=== PATIENT | male | born 1965 | race Caucasian/White ===

== ENCOUNTER 2018-02-28 00:18 | Day surgery (SDC) | payer OTHER ==
[~2018-02-28] VITALS: Ht 177.8 cm; Wt 78.9 kg
[2018-02-28] VITALS (9 sets, daily range): BP systolic 116–128; BP diastolic 49–77
[~2018-02-28 00:18] MED LIST: ACET250T19 PO; ANTI1CAP5; BIMA2.5D5 OP; BRIM5DRO7 OP; MULT-1287 PO; VIT1CAPS34 PO; ceFAZolin(*) 2GM/D5W 50ML 50 ML IVPB ONE
[2018-02-28] MEDS ORDERED: NORMOSOL R SOLN(*) 1000 ML BAG 1,000 ML IV PRN (06:45)
[2018-02-28] MEDS ORDERED: LIDOCAINE/SOD BICARB 8.4% SYR ID ONE (06:45)
[2018-02-28] MEDS ORDERED: ACETAMINOPHEN 500 MG TAB PO ONE (06:45)
[2018-02-28] MEDS ORDERED: ceFAZolin(*) 2GM/D5W 50ML 50 ML IVPB ONE (06:45)
[2018-02-28] MEDS ORDERED: PREGABALIN 150 MG CAPSULE PO ONE (06:45)
[2018-02-28] MEDS ORDERED: FAMOTIDINE 20 MG TAB PO ONE (06:45)
[2018-02-28] MEDS ORDERED: MIDAZOLAM 2 MG/2 ML VIAL IVP PRN (06:45)
[2018-02-28] MEDS ORDERED: ROPIVACAINE 0.5% 20 ML VIAL ONE (09:14)
[2018-02-28] MEDS ORDERED: PROPOFOL EMUL(*) 10MG/ML 20 ML 20 ML ONE (09:46)
[2018-02-28] MEDS ORDERED: SUGAMMADEX SOD 200 MG/2 ML SDV ONE (09:46)
[2018-02-28] MEDS ORDERED: ROCURONIUM BROM 10 MG/ML 10 ML ONE (09:46)
[2018-02-28] MEDS ORDERED: LIDOCAINE MPF 1% 5 ML VIAL ONE (09:46)
[2018-02-28] MEDS ORDERED: ONDANSETRON 4 MG/2 ML VIAL ONE (09:46)
[2018-02-28] MEDS ORDERED: DEXAMETHASONE SOD 4 MG/ML VIAL ONE (09:46)
[2018-02-28] MEDS ORDERED: fentaNYL CITR 250 MCG/5 ML AMP ONE (09:47)
[2018-02-28] MEDS ORDERED: KETAMINE HCL-NS 50 MG/5 ML SYR ONE (09:50)
[2018-02-28] MEDS ORDERED: fentaNYL CITR 100 MCG/2 ML AMP ONE (12:28)
[2018-02-28] MEDS ORDERED: DOCU-416 PO (12:33)
[2018-02-28] MEDS ORDERED: OXYC-854 PO (12:33)
--- NOTE | 2018-02-28 12:36 | Short(Outpt) Discharge Summary ---
Discharge Summary Reason for Hosp/Final Diag: (1) Right inguinal hernia Status: Chronic Hospital Course & Plan: Robotic RIH repair completed without problems. Departure Discharge to: Home, Self Care Discharge Instructions Home Meds Active Scripts Docusate Sodium (COLACE) 100 Mg Capsule, 1 CAP PO BID, #30 CAP 0 Refills TAKE WITH A FULL GLASS OF WATER Prov:GINI ZARAGOZA MD 02/28/18 Oxycodone Hcl/Acet 5/325 Mg (ENDOCET 5-325 TABLET) 1 Each Tablet, 1-2 TAB PO Q4H PRN for PAIN, #30 TAB 0 Refills Prov:GINI ZARAGOZA MD 02/28/18 Reported Medications Vit A/Vit C/Vit E/Zinc/Copper (PRESERVISION AREDS SOFTGEL) 1 Each Capsule, 1 EACH PO BID, CAPSULE 02/06/18 Multivitamin (MEN'S MULTI-VITAMIN) 1 Each Tablet, 1 EACH PO 02/06/18 Bimatoprost (LUMIGAN) 2.5 Ml Drops, 5 ML OP QDAY 12/19/17 Brimonidine Tartrate (ALPHAGAN P) 5 Ml Drops, 1 DROP OP TID 12/19/17 Acetazolamide (ACETAZOLAMIDE) 250 Mg Tablet, 250 MG PO BID 12/19/17 Follow up Referrals: General Surgery - 03/18/18 @ Surgery, General with GINI ZARAGOZA MD You have a follow up appointment scheduled with Dr. Zaragoza on 03/18/18, at 4:15pm. Diet: Regular Activity: No Heavy Lifting Special Instructions: You may remove the white surgical dressings on 03/02/18, then you can shower. After showering, leave the incisions open to air but leave the steristrips in place until they fall off on their own. Do not immerse the incisions for 2 weeks. Avoid any activities that involve straining or lifting more than 10 pounds for 2 weeks after surgery. GINI ZARAGOZA MD Feb 28, 2018 12:36
--- NOTE | 2018-02-28 12:41 | Post Operative Progress Note ---
Post Operative Progress Note Date: Feb 28, 2018 Time: 12:37 Surgeon: Mario Alberto Dictation number: [id number] Anesthesia: GETA by Dr. Castellon Pre-Op Diagnosis: RIH Post-Op Diagnosis: RIH, direct Findings: C/W dx Procedure(s): Robotic RIH repair Specimen Removed:(May be N/A): None Complications: None Fluids: See anesthesia record Estimated Blood Loss: Minimal Date OP Note Dictated: Feb 28, 2018 Time OP Note Dictated: 12:37 GINI ZARAGOZA MD Feb 28, 2018 12:41
--- NOTE | 2018-02-28 13:38 | OPERATIVE REPORT 1 ---
EVENT DATE: February 28, 2018 SURGEON: Silver Llanes M.D. ANESTHESIOLOGIST: Placido Castellon M.D. ANESTHESIA: General endotracheal. PREOPERATIVE DIAGNOSIS Right inguinal hernia. POSTOPERATIVE DIAGNOSIS Right inguinal hernia. PROCEDURE PERFORMED Robotic right inguinal hernia repair. COMPLICATIONS None. CONDITION Stable. ESTIMATED BLOOD LOSS Minimal. INDICATIONS This is a gentleman who presented to my office with a bulge in his right groin that he was requesting to have repaired. Exam is consistent with a right inguinal hernia. DESCRIPTION OF PROCEDURE The patient was brought to the operating room, placed supine on the operating table. General endotracheal anesthesia was administered and his abdomen was prepped and draped in sterile fashion. Time-out was completed and I injected the left subcostal skin with 0.5% ropivacaine plain and made a transversely oriented 8 mm incision in the left subcostal skin. I used a Veress needle and accessed the peritoneal cavity and insufflated the abdomen to a pressure of 15 mmHg. I then used an 8 mm optical trocar with a camera in focus and inserted the trocar and port into the patient's abdomen under visualization without any problems. Next, I inserted the robotic camera into the robotic port and looked at the patient's groins. There was an obvious right inguinal hernia that appeared to be a direct hernia medial to the epigastric vessels. There was no hernia on the left side. I then placed an 8 mm robotic port in the right subcostal area and a third 8 mm robotic port in the epigastric midline. I then had the patient placed in Trendelenburg and inserted the mesh and suture into the patient's abdomen and brought in the robot, docked it and targeted it. I inserted the instruments and then went to the console. I then divided the peritoneum from anterior superior iliac spine all the way to past the midline and then stripped the peritoneum down to create the pocket in the preperitoneal space all the way down below the iliopubic tract as well as the right pubic tubercle and Tom's ligament. I reduced the right direct inguinal hernia and stripped all the tissues out of the hernia defect. I cleaned off the cord structures and identified the cord vessels as well as the vas deferens and these were preserved. I saw the peritoneal reflection and I stripped this way down so there was plenty of room for the mesh. I then put the mesh in the preperitoneal space, deployed it so it laid nice and flat. There was no peritoneal fold underneath the mesh. The mesh laid nice and flat with no folds or twists and covered the myopectineal arch with several centimeters of overlap on all sides. I then sewed the peritoneum back together with absorbable V-Loc suture. There were areas of thin peritoneum in the right lower quadrant and there was even a little hole in this, I think from a previous surgery he had, and I reinforced this with another running absorbable V-Loc suture. After this, everything looked great. I removed the robotic instruments, undocked the robot, removed the ports after desufflating the abdomen and closed the skin incisions with 4-0 Monocryl subcuticular suture. Skin was cleaned, dried, and steri-strips were applied followed by sterile surgical dressings. The patient was awakened and extubated in the operating room and transported to the recovery room in stable condition, having tolerated the procedure without any apparent problems. DANILO
== END 2018-02-28 13:40 | disposition home or self-care (01) ==
LOC: OR 00:18
PROVIDERS: ATTEND Surgery
DX: K40.90 Unilateral inguinal hernia, without obstruction or gangrene, not specified as recurrent (principal)
CPT/HCPCS: 49650; J1100; J2001; J2250; J2405; J2704; J2795; J3010; J3490; S2900; J0690

== ENCOUNTER → 2018-07-12 | Outpatient (CLI) | payer OTHER ==
[~2018-07-12] MED LIST changes: +DOCU-416 PO; +OXYC-854 PO; -ceFAZolin(*) 2GM/D5W 50ML 50 ML IVPB ONE
== END ==
LOC: RESP 19:48
PROVIDERS: ATTEND Nurse Practitioner Family
DX: G47.33 Obstructive sleep apnea (adult) (pediatric) (principal); G47.61 Periodic limb movement disorder

== ENCOUNTER 2018-10-07 00:40 | Emergency (ER) | payer OTHER ==
--- NOTE | 2018-10-07 01:22 | ER Report ---
History and Physical Time Seen By MD: 01:22 HPI/ROS CHIEF COMPLAINT: CHIEF COMPLAINT: back pain, vomiting HISTORY OF PRESENT ILLNESS: This is a 52 year old male. He is having pain in right flank that is now wrapping around to his lower abdomen. Worsening pain. Nausea with vomiting. Feels like he needs to have a bowel movement, has had a small one, but no relief. Small amounts of urination. No dysuria. No fevers or chills. No history of kidney stones. Allergies: Coded Allergies: No Known Drug Allergies (Unverified , 12/19/17) Home Meds Active Scripts Ketorolac Tromethamine (KETOROLAC TROMETHAMINE) 10 Mg Tab, 10 MG PO Q6H PRN for PAIN, #12 TAB 0 Refills Prov:BOOGIE SINHA MD 10/07/18 Oxycodone Hcl/Acetaminophen (PERCOCET 5-325 MG TABLET) 1 Each Tablet, 1 EACH PO Q4H PRN for PAIN, #12 TAB 0 Refills Prov:BOOGIE SINHA MD 10/07/18 Ondansetron 4 Mg Odt (ONDANSETRON 4 MG ODT) 4 Mg Tab.rapdis, 4 MG PO Q6H PRN for NAUSEA/VOMITING, #20 TAB 0 Refills Prov:BOOGIE SINHA MD 10/07/18 Tamsulosin Hcl (FLOMAX) 0.4 Mg Cap.er.24h, 0.4 MG PO QDAY, #14 CAP 0 Refills Prov:BOOGIE SINHA MD 10/07/18 Docusate Sodium (COLACE) 100 Mg Capsule, 1 CAP PO BID, #30 CAP 0 Refills TAKE WITH A FULL GLASS OF WATER Prov:GINI ZARAGOZA MD 02/28/18 Oxycodone Hcl/Acet 5/325 Mg (ENDOCET 5-325 TABLET) 1 Each Tablet, 1-2 TAB PO Q4H PRN for PAIN, #30 TAB 0 Refills Prov:GINI ZARAGOZA MD 02/28/18 Reported Medications Vit A/Vit C/Vit E/Zinc/Copper (PRESERVISION AREDS SOFTGEL) 1 Each Capsule, 1 EACH PO BID, CAPSULE 02/06/18 Multivitamin (MEN'S MULTI-VITAMIN) 1 Each Tablet, 1 EACH PO 02/06/18 Bimatoprost (LUMIGAN) 2.5 Ml Drops, 5 ML OP QDAY 12/19/17 Brimonidine Tartrate (ALPHAGAN P) 5 Ml Drops, 1 DROP OP TID 12/19/17 Acetazolamide (ACETAZOLAMIDE) 250 Mg Tablet, 250 MG PO BID 12/19/17 Reviewed Nurses Notes: Yes Hx Smoking: No Smoking Status: Never Smoker Hx Alcohol Use: No Constitutional Vital Sign - Last 24 Hours 10/07/18 01:06 Temp 98.0 Pulse 70 Resp 13 B/P (MAP) 136/76 Pulse Ox 96 O2 Delivery Room Air Intake and Output 10/06/18 10/06/18 10/07/18 15:00 23:00 07:00 Intake Total 1000 ml Balance 1000 ml Physical Exam General Appearance: The patient is alert. Acute distress due to pain. Eyes: Pupils are equal, round. No pallor, injection or icterus. ENT: Mucous membranes are moist. Respiratory: Lungs are clear to auscultation. Cardiovascular: Regular rate and rhythm. No murmurs, gallops or rubs. Normal capillary refill. Gastrointestinal: Abdomen is soft and non tender. Nondistended. Normal active bowel sounds. No costovertebral angle tenderness with percussion. Neurological: Alert and oriented x3. Skin: Warm and dry. No rashes. Musculoskeletal: No tenderness in palpation of the cervical, thoracic and lumbar spine. DIFFERENTIAL DIAGNOSIS: After history and physical exam, differential diagnosis was considered for flank and lower abdominal pain that sounds mostly like a kidney stone. We will get a urinalysis, lead work, and get a noncontrast CT scan. Pain medication including morphine, Toradol, Zofran and IV fluids. Medical Decision Making Data Points Result Diagram: 10/07/18 0114 10/07/18 0114 Laboratory Hematology Test 10/07/18 01:03 10/07/18 01:14 Urine Color Yellow Urine Clarity Slightly-cloudy Urine pH 6.0 pH (4.8-9.5) Urine Specific [employer] 1.025 Urine Protein Negative mg/dL (NEGATIVE) Urine Glucose (UA) Negative mg/dL (NEGATIVE) Urine Ketones Trace mg/dL (NEGATIVE) Urine Blood Moderate (NEGATIVE) Urine Nitrite Negative (NEGATIVE) Urine Bilirubin Negative (NEGATIVE) Urine Urobilinogen 2.0 mg/dL (0.2-1.9) Urine Leukocyte Esterase Trace (NEGATIVE) Urine RBC 98 /HPF (0-2/HPF) Urine WBC 7 /HPF (0-5/HPF) Urine Squamous Epithelial Cells Many /LPF (</=FEW) Urine Calcium Oxalate Crystals Few /HPF (NONE) Urine Bacteria Negative /HPF (NONE-FEW) Urine Mucus Few /HPF (NONE-FEW) Red Blood Count 5.17 M/uL (4.00-5.60) Mean Corpuscular Volume 79.2 fL (80.0-96.0) Mean Corpuscular Hemoglobin 26.6 pg (26.0-33.0) Mean Corpuscular Hemoglobin Concent 33.5 g/dL (32.0-36.0) Red Cell Distribution Width 13.5 % (11.5-14.5) Mean Platelet Volume 7.8 fL (7.2-11.1) Neutrophils (%) (Auto) 78.4 % (39.4-72.5) Lymphocytes (%) (Auto) 14.6 % (17.6-49.6) Monocytes (%) (Auto) 4.6 % (4.1-12.4) Eosinophils (%) (Auto) 1.9 % (0.4-6.7) Basophils (%) (Auto) 0.5 % (0.3-1.4) Nucleated RBC Relative Count (auto) 0.1 /100WBC Neutrophils # (Auto) 7.4 K/uL (2.0-7.4) Lymphocytes # (Auto) 1.4 K/uL (1.3-3.6) Monocytes # (Auto) 0.4 K/uL (0.3-1.0) Eosinophils # (Auto) 0.2 K/uL (0.0-0.5) Basophils # (Auto) 0.0 K/uL (0.0-0.1) Nucleated RBC Absolute Count (auto) 0.01 K/uL Sodium Level 142 mmol/L (137-145) Potassium Level 3.2 mmol/L (3.5-5.0) Chloride Level 113 mmol/L (98-107) Carbon Dioxide Level 21 mmol/L (22-30) Blood Urea Nitrogen 17 mg/dl (9-21) Creatinine 1.20 mg/dl (0.66-1.25) Glomerular Filtration Rate Calc > 60.0 Random Glucose 149 mg/dl (75-110) Calcium Level 9.1 mg/dl (8.4-10.2) Total Bilirubin < 0.1 mg/dl (0.2-1.3) Aspartate Amino Transf (AST/SGOT) 19 U/L (0-35) Alanine Aminotransferase (ALT/SGPT) 25 U/L (0-56) Alkaline Phosphatase 68 U/L (0-126) Total Protein 6.5 g/dl (6.3-8.2) Albumin 4.1 g/dl (3.5-5.0) Chemistry Test 10/07/18 01:03 10/07/18 01:14 Urine Color Yellow Urine Clarity Slightly-cloudy Urine pH 6.0 pH (4.8-9.5) Urine Specific [employer] 1.025 Urine Protein Negative mg/dL (NEGATIVE) Urine Glucose (UA) Negative mg/dL (NEGATIVE) Urine Ketones Trace mg/dL (NEGATIVE) Urine Blood Moderate (NEGATIVE) Urine Nitrite Negative (NEGATIVE) Urine Bilirubin Negative (NEGATIVE) Urine Urobilinogen 2.0 mg/dL (0.2-1.9) Urine Leukocyte Esterase Trace (NEGATIVE) Urine RBC 98 /HPF (0-2/HPF) Urine WBC 7 /HPF (0-5/HPF) Urine Squamous Epithelial Cells Many /LPF (</=FEW) Urine Calcium Oxalate Crystals Few /HPF (NONE) Urine Bacteria Negative /HPF (NONE-FEW) Urine Mucus Few /HPF (NONE-FEW) White Blood Count 9.4 k/uL (4.5-11.0) Red Blood Count 5.17 M/uL (4.00-5.60) Hemoglobin 13.7 g/dL (14.0-18.0) Hematocrit 41.0 % (42.0-52.0) Mean Corpuscular Volume 79.2 fL (80.0-96.0) Mean Corpuscular Hemoglobin 26.6 pg (26.0-33.0) Mean Corpuscular Hemoglobin Concent 33.5 g/dL (32.0-36.0) Red Cell Distribution Width 13.5 % (11.5-14.5) Platelet Count 192 K/uL (150-450) Mean Platelet Volume 7.8 fL (7.2-11.1) Neutrophils (%) (Auto) 78.4 % (39.4-72.5) Lymphocytes (%) (Auto) 14.6 % (17.6-49.6) Monocytes (%) (Auto) 4.6 % (4.1-12.4) Eosinophils (%) (Auto) 1.9 % (0.4-6.7) Basophils (%) (Auto) 0.5 % (0.3-1.4) Nucleated RBC Relative Count (auto) 0.1 /100WBC Neutrophils # (Auto) 7.4 K/uL (2.0-7.4) Lymphocytes # (Auto) 1.4 K/uL (1.3-3.6) Monocytes # (Auto) 0.4 K/uL (0.3-1.0) Eosinophils # (Auto) 0.2 K/uL (0.0-0.5) Basophils # (Auto) 0.0 K/uL (0.0-0.1) Nucleated RBC Absolute Count (auto) 0.01 K/uL Glomerular Filtration Rate Calc > 60.0 Calcium Level 9.1 mg/dl (8.4-10.2) Total Bilirubin < 0.1 mg/dl (0.2-1.3) Aspartate Amino Transf (AST/SGOT) 19 U/L (0-35) Alanine Aminotransferase (ALT/SGPT) 25 U/L (0-56) Alkaline Phosphatase 68 U/L (0-126) Total Protein 6.5 g/dl (6.3-8.2) Albumin 4.1 g/dl (3.5-5.0) Urinalysis Test 10/07/18 01:03 Urine Color Yellow Urine Clarity Slightly-cloudy Urine pH 6.0 pH (4.8-9.5) Urine Specific [employer] 1.025 Urine Protein Negative mg/dL (NEGATIVE) Urine Glucose (UA) Negative mg/dL (NEGATIVE) Urine Ketones Trace mg/dL (NEGATIVE) Urine Blood Moderate (NEGATIVE) Urine Nitrite Negative (NEGATIVE) Urine Bilirubin Negative (NEGATIVE) Urine Urobilinogen 2.0 mg/dL (0.2-1.9) Urine Leukocyte Esterase Trace (NEGATIVE) Urine RBC 98 /HPF (0-2/HPF) Urine WBC 7 /HPF (0-5/HPF) Urine Squamous Epithelial Cells Many /LPF (</=FEW) Urine Calcium Oxalate Crystals Few /HPF (NONE) Urine Bacteria Negative /HPF (NONE-FEW) Urine Mucus Few /HPF (NONE-FEW) EKG/Imaging Imaging COMPUTED TOMOGRAPHY ABDOMEN AND PELVIS WITHOUT INTRAVENOUS CONTRAST DATE OF EXAM: 10/07/2018 1:28 AM INDICATION: Right flank and abdominal pain. COMPARISON: None. TECHNIQUE: Noncontrast abdomen and pelvis CT performed. Sagittal and coronal reconstructions were performed. One of the following dose optimization techniques was utilized in the performance of this exam: Automated exposure control; adjustment of the mA and/or kV according to the patient's size; or use of an iterative reconstruction technique. Specific details can be referenced in the facility's radiology CT exam operational policy. FINDINGS: Lung bases: Minimal atelectasis. Liver: No acute abnormality or suspicious lesion. Gallbladder and bile ducts: Normal. Spleen: Normal. Pancreas: Normal. Adrenals: Normal. Kidneys, ureters and bladder: 3 mm calculus at the right ureteropelvic junction with mild hydronephrosis/hydroureter. Associated inflammation about the ureter and intrarenal pelvis. Probable large parapelvic cysts on the left. Retroperitoneum and aorta: Normal aorta. No adenopathy. GI tract, mesentery and peritoneum: Nonacute. Tiny hiatal hernia. Prostate and seminal vesicles: Normal. Bones and soft tissues: No acute abnormality or suspicious lesion. Small bone islands in the pelvis. Small fat-containing umbilical and bilateral inguinal hernias. IMPRESSION: 3 mm calculus at the right ureteropelvic junction with mild hyd ronephrosis/hydroureter. Report Dictated By: Dane Vines MD at 10/07/2018 2:34 AM ED Course/Re-evaluation Clinical Indication for ER IV: Hydration, IV Access ED Course IV started. Improved pain with morphine and Toradol. Vomiting improved with [address] obtained and shows a 3 mm kidney stone on the right. Discussed this with the patient. Given another dose of IV morphine for some pain that was coming back. Started Flomax. Gave oral Percocet and Toradol and sent home with oral Zofran. Decision to Disposition Date: October 07, 2018 Decision to Disposition Time: 03:04 Depart Departure Latest Vital Signs Vital Signs Date Time Temp Pulse Resp B/P (MAP) Pulse Ox O2 Delivery O2 Flow Rate FiO2 10/07/18 01:06 98.0 70 13 136/76 96 Room Air Impression: Primary Impression: Kidney stone on right side Condition: Improved Disposition: HOME OR SELF-CARE New Scripts Ketorolac Tromethamine (KETOROLAC TROMETHAMINE) 10 Mg Tab 10 MG PO Q6H PRN for PAIN, #12 TAB 0 Refills Prov: BOOGIE SINHA MD 10/07/18 Oxycodone Hcl/Acetaminophen (PERCOCET 5-325 MG TABLET) 1 Each Tablet 1 EACH PO Q4H PRN for PAIN, #12 TAB 0 Refills Prov: BOOGIE SINHA MD 10/07/18 Ondansetron 4 Mg Odt (ONDANSETRON 4 MG ODT) 4 Mg Tab.rapdis 4 MG PO Q6H PRN for NAUSEA/VOMITING, #20 TAB 0 Refills Prov: BOOGIE SINHA MD 10/07/18 Tamsulosin Hcl (FLOMAX) 0.4 Mg Cap.er.24h 0.4 MG PO QDAY, #14 CAP 0 Refills Prov: BOOGIE SINHA MD 10/07/18 Patient Instructions: Kidney Stones (ED) Additional Instructions: Percocet 5/325, one every 4 hours as needed for pain. Toradol 10mg, one every 6 hours as needed for pain. Flomax 0.4mg once a day for 14 days. Zofran 4mg, one every 6 hours as needed for nausea. Use a strainer with urination to catch the stone and bring to your doctor. BOOGIE SINHA MD October 07, 2018 01:22
[2018-10-07] MEDS ORDERED: KETOROLAC 30 MG/ML VIAL IVP ONE (01:30)
[2018-10-07] MEDS ORDERED: ONDANSETRON 4 MG/2 ML VIAL IVP ONE (01:30)
[2018-10-07] MEDS ORDERED: MORPHINE 4 MG/ML SDV IVP ONE ×2 (01:30→03:00)
[2018-10-07] MEDS ORDERED: NS(*) 0.9% 1000 ML BAG 1,000 ML IV ONE (01:30)
[2018-10-07 01:45] LABS: PLATELET COUNT, AUTOMATED 192 K/uL (150-450)
--- NOTE | 2018-10-07 02:45 | RADIOLOGY IMAGING REPORT ---
[place] [facility] [place] George Sosa : 1965 MR: [id number] V: [id number] EXAM DATE: [id number] ORDERING PHYSICIAN: BOOGIE SINHA TECHNOLOGIST: Location: [facility] [place] Patient: George Sosa : 1965 Visit/Account:[id number] Date of Sevice: 10/07/2018 COMPUTED TOMOGRAPHY ABDOMEN AND PELVIS WITHOUT INTRAVENOUS CONTRAST DATE OF EXAM: 10/07/2018 1:28 AM INDICATION: Right flank and abdominal pain. COMPARISON: None. TECHNIQUE: Noncontrast abdomen and pelvis CT performed. Sagittal and coronal reconstructions were pe rformed. One of the following dose optimization techniques was utilized in the performance of this e xam: Automated exposure control; adjustment of the mA and/or kV according to the patient's size; or u se of an iterative reconstruction technique. Specific details can be referenced in the facility's r adiology CT exam operational policy. FINDINGS: Lung bases: Minimal atelectasis. Liver: No acute abnormality or suspicious lesion. Gallbladder and bile ducts: Normal. Spleen: Normal. Pancreas: Normal. Adrenals: Normal. Kidneys, ureters and bladder: 3 mm calculus at the right ureteropelvic junction with mild hydronephr osis/hydroureter. Associated inflammation about the ureter and intrarenal pelvis. Probable large pa rapelvic cysts on the left. Retroperitoneum and aorta: Normal aorta. No adenopathy. GI tract, mesentery and peritoneum: Nonacute. Tiny hiatal hernia. Prostate and seminal vesicles: Normal. Bones and soft tissues: No acute abnormality or suspicious lesion. Small bone islands in the pelvis . Small fat-containing umbilical and bilateral inguinal hernias. IMPRESSION: 3 mm calculus at the right ureteropelvic junction with mild hydronephrosis/hydroureter. Report Dictated By: Dane Vines MD at 10/07/2018 2:34 AM Report E-Signed By: Dane Vines MD at 10/07/2018 2:41 AM WSN:[id number]
[2018-10-07] MEDS ORDERED: TAMSULOSIN HCL 0.4 MG CAP PO ONE (03:05)
[2018-10-07] MEDS ORDERED: OXYC-865 PO (03:06)
[2018-10-07] MEDS ORDERED: KET10 PO (03:06)
[2018-10-07] MEDS ORDERED: TAMS0.4C25 PO (03:06)
[2018-10-07] MEDS ORDERED: ONDA4TAB9 PO (03:06)
[2018-10-07] MEDS ORDERED: ONDANSETRON 4 MG ODT TH SL ONE (03:25)
[2018-10-07] MEDS ORDERED: oxyCODONE/ACETAMIN 5/325MG TH 2 TAB/BOTTLE PO ONE (03:25)
[2018-10-07] MEDS ORDERED: KETOROLAC TROM 10 MG TAB TH PO ONE (03:25)
[2018-10-07] MEDS ORDERED: KETOROLAC TROM 10MG TAB PO ONE (04:00)
[2018-10-07] MEDS ORDERED: oxyCODON/ACET (*)5/325MG (CII) 1 TAB TAB PO ONE (04:00)
[2018-10-07 04:01] VITALS: BP 126/108
== END 2018-10-07 04:28 | disposition home or self-care (01) ==
LOC: ER 01:35
DX: N13.2 Hydronephrosis with renal and ureteral calculous obstruction (principal)
CPT/HCPCS: 74176; 81001; 85025; 96361; 96374; 96375; 96376; 99284; J1885; J2270; J2405; J7030; S0119; 82040; 82247; 82310; 82374; 82435; 82565; 82947; 84075; 84132; 84155; 84295; 84450; 84460; 84520

== ENCOUNTER → 2018-10-10 | Outpatient (CLI) | payer OTHER ==
[~2018-10-10] MED LIST changes: +KET10 PO; +ONDA4TAB9 PO; +OXYC-865 PO; +TAMS0.4C25 PO
== END ==
LOC: LAB 11:35
PROVIDERS: ATTEND Nurse Practitioner Family
DX: N20.0 Calculus of kidney (principal)
CPT/HCPCS: 82365; 88300